=== PATIENT | female | born 1975 | race Caucasian/White ===

== ENCOUNTER 2017-11-21 16:55 | Emergency (ER) | payer OTHER ==
[~2017-11-21] VITALS: Ht 157.5 cm; Wt 72.6 kg
[~2017-11-21 16:55] MED LIST: ALDOMET250 MG PO; BACTRIM DS TAB1 EACH PO; BACTROBAN22 GM TP; BYSTOLIC 5 MG5 M1 PO; COLACE 100 MG100 MG PO; FLAGYL500 MG PO; LISINOPRIL20 MG PO; MECLIZINE HCL25 M1 PO; NAPROSYN500 MG PO; NORCO 5-325 TA1 EACH PO; NORVASC 5 MG TAB5 MG; ULTRAM 50MG TAB50 MG PO
[2017-11-21] MEDS ORDERED: PREDNISONE 20 M20 MG PO (18:23)
[2017-11-21] MEDS ORDERED: VENTOLIN HFA 1818 GM INH (18:23)
[2017-11-21] MEDS ORDERED: TESSALON PERLE100 MG PO (18:23)
[2017-11-21 18:42] VITALS: BP 124/92
== END 2017-11-21 18:43 | disposition home or self-care (01) ==
LOC: M.ERS 16:55
DX: J45.909 Unspecified asthma, uncomplicated (principal); I10 Essential (primary) hypertension; E11.9 Type 2 diabetes mellitus without complications; F17.210 Nicotine dependence, cigarettes, uncomplicated; Z88.0 Allergy status to penicillin

== ENCOUNTER 2019-05-28 13:54 | Emergency (ER) | payer OTHER ==
[~2019-05-28] VITALS: Ht 157.5 cm; Wt 77.1 kg
[~2019-05-28 13:54] MED LIST changes: +PREDNISONE 20 M20 MG PO; +TESSALON PERLE100 MG PO; +VENTOLIN HFA 1818 GM INH
[2019-05-28 14:31] LABS: URINE BILIRUBIN NEGATIVE (Negative); URINE BLOOD 3+ (Negative); URINE CLARITY CLEAR; URINE COLOR YELLOW; URINE GLUCOSE-RANDOM NEGATIVE (Negative); URINE KETONES NEGATIVE (Negative); URINE LEUKOCYTES-REFLEX NEGATIVE (Negative); URINE NITRITE-REFLEX NEGATIVE (Negative); URINE PROTEIN NEGATIVE (Negative); URINE SPECIFIC GRAVITY <= 1.005 (1.005-1.030); URINE UROBILINOGEN 0.2 E.U./dl (0.2-1.0)
[2019-05-28 14:36] LABS: ABSOLUTE EOSINOPHILS 0.2 thou/uL (0.0-0.7); ABSOLUTE LYMPHOCYTES 1.4 thou/uL (0.8-5.3); ABSOLUTE MONOCYTES 0.8 thou/uL (0.0-1.2); ABSOLUTE NEUTROPHILS 3.9 thou/uL (1.6-8.1); BASOPHILS 0.7 %; EOSINOPHILS 2.9 %; HEMATOCRIT 42.5 % (37.0-47.0); HEMOGLOBIN 14.4 gm/dL (12.0-15.0); LYMPHOCYTES 21.9 %; MCH 31.7 pg (26.0-34.0); MCV 93.4 fL (80.0-100.0); MONOCYTES 12.1 %; MPV 8.5 fl. (7.2-11.1); NUCLEATED RBCS 0 /100WBC; PLATELET COUNT* 216 thou/uL (150-400); POLYS 62.4 %; RBC 4.55 mil/uL (4.20-5.00); RDW-CV 13.1 % (10.5-14.5); WBC 6.2 thou/uL (4.0-11.0)
[2019-05-28 14:42] LABS: CALCIUM 8.5 mg/dL (8.5-10.1); CREATININE 0.8 mg/dL (0.6-1.3); POTASSIUM 3.8 mmol/L (3.5-5.1)
[2019-05-28 14:46] LABS: ALBUMIN 3.2 g/dL (3.4-5.0); TOTAL BILIRUBIN 0.1 mg/dL (<0.1-1.0); TOTAL PROTEIN 6.9 g/dL (6.4-8.2)
[2019-05-28 14:53] LABS: MUCUS None Seen strn/LPF (None Seen); SQUAMOUS >10 Many /LPF (0-3)
[2019-05-28 14:54] LABS: BACTERIA-REFLEX None Seen /HPF (None Seen); CASTS None Seen /LPF (None Seen); CRYSTALS None Seen /LPF (None Seen); URINE RBC >20 Many /HPF (0-2); URINE WBC-REFLEX None Seen /HPF (0-5)
[2019-05-28 15:09] VITALS: BP 124/77
== END 2019-05-28 15:10 | disposition home or self-care (01) ==
LOC: M.ERS 13:54
PROVIDERS: Physician Assistant
DX: R11.2 Nausea with vomiting, unspecified (principal); R19.7 Diarrhea, unspecified; I10 Essential (primary) hypertension; E11.9 Type 2 diabetes mellitus without complications; F17.210 Nicotine dependence, cigarettes, uncomplicated; Z88.0 Allergy status to penicillin